=== PATIENT | male | born 1955 | race Caucasian/White ===

== ENCOUNTER 2016-08-21 13:53 | Inpatient (IN) | payer OTHER ==
[2016-08-21 14:38] VITALS: BMI 34.4
--- NOTE | 2016-08-21 15:41 | HP ---
CIWA Score - CIWA Score Nausea/Vomitin Muscle Tremors: 4-Moderate,w/Arms Extend Anxiety: 4-Mod. Anxious/Guarded Agitation: 4-Moderately Restless Paroxysmal Sweats: 3 Orientation: 2-Disoriented Date<2 days Tacttile Disturbances: 0-None Auditory Disturbances: 0-None Visual Disturbances: 0-None Headache: 0-None Present CIWA-Ar Total Score: 19 Admission ROS BHS - HPI Chief Complaint: Withdrawal sx. Allergies/Adverse Reactions: Allergies Allergy/AdvReac Type Severity Reaction Status Date / Time No Known Allergies Allergy Verified 08/21/16 15:07 History of Present Illness: 60 y/o man with a long hx. of alcoholism is admitted for detox. Pt. has been in previous detox,denies significant sobriety. Exam Limitations: No Limitations - Ebola screening Have you traveled outside of the country in the last 21 days: No Have you had contact with anyone from an Ebola affected area: No Have you been sick,other than usual withdrawal symptoms: No Do you have a fever: No - Review of Systems Constitutional: Diaphoresis EENT: reports: No Symptoms Reported Respiratory: reports: No Symptoms reported Cardiac: reports: No Symptoms Reported GI: reports: Nausea, Abdominal cramping : reports: No Symptoms Reported Musculoskeletal: reports: Back Pain Integumentary: reports: Sweating Neuro: reports: Tremors Endocrine: reports: Increased Hunger, Increased Thirst Hematology: reports: No Symptoms Reported Psychiatric: reports: No Sypmtoms Reported Other Systems: Reviewed and Negative Patient History - Patient Medical History Hx Anemia: No Hx Asthma: No Hx Chronic Obstructive Pulmonary Disease (COPD): No Hx Cancer: No Hx Cardiac Disorders: No Hx Congestive Heart Failure: No Hx Hypertension: No Hx Hypercholesterolemia: No Hx Pacemaker: No HX Cerebrovascular Accident: No Hx Seizures: No Hx Dementia: No Hx Diabetes: Yes Hx Gastrointestinal Disorders: No Hx Liver Disease: Yes (hep c) Hx Genitourinary Disorders: No Hx Sexually Transmitted Disorders: No Hx Renal Disease (ESRD): No Hx Thyroid Disease: No Hx Human Immunodeficiency Virus (HIV): No Hx Hepatitis C: Yes (needs treatment) Hx Depression: Yes Hx Suicide Attempt: No Hx Bipolar Disorder: No (schizo-affective) Hx Schizophrenia: No - Patient Surgical History Past Surgical History: No Hx Neurologic Surgery: No Hx Cataract Extraction: No Hx Cardiac Surgery: No Hx Lung Surgery: No Hx Breast Surgery: No Hx Breast Biopsy: No Hx Abdominal Surgery: No Hx Appendectomy: No Hx Cholecystectomy: No Hx Genitourinary Surgery: No Hx Section: No Hx Orthopedic Surgery: No Anesthesia Reaction: No - PPD History Previous Implant?: Yes Documented Results: Negative w/o proof PPD to be Administered?: Yes - Smoking Cessation Smoking history: Current every day smoker Have you smoked in the past 12 months: Yes Aproximately how many cigarettes per day: 5 Hx Chewing Tobacco Use: No Initiated information on smoking cessation: Yes 'Breaking Loose' booklet given: 08/21/16 - Substance & Tx. History Hx Alcohol Use: Yes Hx Substance Use: Yes Substance Use Type: Alcohol, Cocaine, Heroin Hx Substance Use Treatment: Yes (detox,OTP) - Substances Abused Alcohol Route: Oral Frequency: Daily Amount used: liquor- 1 pint, beer- 1 six pack Age of first use: 15 Date of Last Use: 08/20/16 Heroin Route: Inhalation Frequency: Daily Amount used: 2 bags Age of first use: 16 Date of Last Use: 08/20/16 Cocaine Route: Inhalation Frequency: Daily Amount used: $40.00 Age of first use: 15 Date of Last Use: 08/20/16 Family Disease History - Family Disease History Family Disease History: Heart Disease: Father (HTN), Mother (HTN) Admission Physical Exam [facility] - Vital Signs Vital Signs: Vital Signs - 24 hr 08/21/16 14:37 Temperature 96.7 F L Pulse Rate 79 Respiratory 18 Rate Blood Pressure 112/67 - Physical General Appearance: Yes: Tremorous, Sweating, Anxious HEENTM: Yes: Within Normal Limits Respiratory: Yes: Chest Non-Tender, Lungs Clear, Normal Breath Sounds Neck: Yes: Supple Breast: Yes: Breast Exam Deferred Cardiology: Yes: Regular Rhythm, Regular Rate, S1, S2 Abdominal: Yes: Normal Bowel Sounds, Non Tender, Soft Genitourinary: Yes: Within Normal Limits Back: Yes: Within Normal Limits Musculoskeletal: Yes: Within Normal Limits Extremities: Yes: Tremors Neurological: Yes: Fully Oriented, Alert Integumentary: Yes: Diaphoresis Lymphatic: Yes: Within Normal Limits - Diagnostic (1) Alcohol dependence with uncomplicated withdrawal Current Visit: Yes Status: Acute (2) Type II diabetes mellitus Current Visit: Yes Status: Acute Qualifiers: Diabetes mellitus complication status: without complication Diabetes mellitus termite technician insulin use: without snf use Qualified Code(s): E11.9 - Type 2 diabetes mellitus without complications (3) Opioid dependence on agonist therapy Current Visit: Yes Status: Acute (4) Obesity Current Visit: Yes Status: Acute Qualifiers: Obesity type: due to excess calories Obesity severity: non-morbid Qualified Code(s): E66.09 - Other obesity due to excess calories Cleared for Admission BHS - Detox or Rehab [facility] Level of Care: Medically Managed Detox Regimen/Protocol: Librium S Breath Alcohol Content Breath Alcohol Content: 0 Urine Drug Screen - Results Drug Screen Negative: No Urine Drug Screen Results: PATT-Cocaine, OPI-Opiates, MTD-Methadone, TCA- Tricyclic Antidepress
[2016-08-21] MEDS ORDERED: P-EPHED 60MG/TRIPROLIDI 2.5MG TABLET PO PRN (15:48)
[2016-08-21] MEDS ORDERED: guaiFENesin/D-METHORPHAN HB 10 ML UNIT-DOSE CUPS PO PRN (15:48)
[2016-08-21] MEDS ORDERED: chlordiazePOXIDE HCL 25 MG CAPSULE PO ONE (15:48)
[2016-08-21] MEDS ORDERED: MAGNESIUM HYDROX 2400MG/30ML ORAL SUSPENSION 30 ML CUP PO PRN (15:48)
[2016-08-21] MEDS ORDERED: MAGNESIUM CITRATE 300 ML BOTTLE PO PRN (15:48)
[2016-08-21] MEDS ORDERED: ACETAMINOPHEN 325 MG TABLET (FP) PO PRN (15:48)
[2016-08-21] MEDS ORDERED: IBUPROFEN 400 MG TABLET (FP) PO PRN (15:48)
[2016-08-21] MEDS ORDERED: MAG HYDROX/AL HYDROX/SIMETH 30 ML UNIT-DOSE CUP PO PRN (15:48)
[2016-08-21] MEDS ORDERED: hydrOXYzine PAMOATE 50 MG CAPSULE (FP) PO PRN (15:48)
[2016-08-21] MEDS ORDERED: LOPERAMIDE HCL 2 MG CAPSULE PO PRN (15:48)
[2016-08-21] MEDS ORDERED: MENTHOL/PHENOL 1 EACH UD MM PRN (15:48)
[2016-08-21] MEDS ORDERED: chlordiazePOXIDE HCL 25 MG CAPSULE PO PRN (15:48)
[2016-08-21] MEDS: metFORMIN HCL 500 MG TABLET (FP) PO SCH (18:05)
[2016-08-21] MEDS: chlordiazePOXIDE HCL 25 MG CAPSULE PO SCH ×2 (18:06→22:12)
[2016-08-21] MEDS: INSULIN (NOVOLOG) ASPART 100 UNITS/ML 10ML VIAL SQ SCH (18:07)
[2016-08-21] MEDS: NICOTINE 14 MG/24 HOURS TOPICAL PATCH TD SCH (18:07)
[2016-08-21] MEDS: THIAMINE HCL 100 MG TABLET (FP) PO SCH (22:12)
[2016-08-21] MEDS: diphenhydrAMINE HCL 50 MG CAPSULE PO PRN (22:13)
[2016-08-21] MEDS: NICOTINE POLACRILEX 2 MG GUM BC PRN (22:41)
[2016-08-22] MEDS: chlordiazePOXIDE HCL 25 MG CAPSULE PO SCH ×4 (06:10→22:08)
[2016-08-22] MEDS: METHADONE HCL 40 MG DISPERSABLE TABLET PO SCH (06:10)
[2016-08-22] MEDS: metFORMIN HCL 500 MG TABLET (FP) PO SCH ×2 (07:40→17:09)
[2016-08-22] MEDS: INSULIN (NOVOLOG) ASPART 100 UNITS/ML 10ML VIAL SQ SCH ×2 (07:41→17:18)
[2016-08-22] MEDS: PRENATAL VITAMINS W/ FOLIC ACID TABLET (FP) PO SCH (10:12)
[2016-08-22] MEDS: NICOTINE 14 MG/24 HOURS TOPICAL PATCH TD SCH (10:14)
[2016-08-22] MEDS: NICOTINE POLACRILEX 2 MG GUM BC PRN (10:15)
[2016-08-22 10:48] LABS: MCHC 33.7 g/dl (32.0-35.9); MEAN PLT VOLUME 9.5 fl (7.5-11.1); PLATELET COUNT 148 K/MM3 (134-434); RDW 14.3 % (11.9-15.9); WHITE BLOOD COUNT 6.5 K/mm3 (4.0-10.0)
[2016-08-22 10:56] LABS: URINE APPEARANCE CLEAR; URINE BILIRUBIN NEGATIVE (NEGATIVE); URINE BLOOD NEGATIVE (NEGATIVE); URINE COLOR LTYELLOW; URINE GLUCOSE (UA) NEGATIVE (NEGATIVE); URINE KETONE NEGATIVE (NEGATIVE); URINE LEUK ESTERASE NEGATIVE (NEGATIVE); URINE NITRITE NEGATIVE (NEGATIVE); URINE PROTEIN NEGATIVE (NEGATIVE); URINE UROBILINOGEN NEGATIVE E.U./dl (0.2-1.0)
[2016-08-22 11:05] LABS: ALBUMIN 3.7 g/dl (3.4-5.0); ANION GAP 6 (8-16); CALCIUM 9.1 mg/dL (8.5-10.1); CO2 36 mmol/L (21-32); GLUCOSE,RANDOM 138 mg/dL (74-106); SGPT/ALT 41 U/L (12-78)
[2016-08-22 11:10] LABS: ALK PHOS 121 U/L (45-117); BILIRUBIN,TOTAL 0.6 mg/dL (0.2-1.0); SGOT/AST 25 U/L (15-37)
--- NOTE | 2016-08-22 16:05 | PN ---
S CIWA - CIWA Score Nausea/Vomitin Muscle Tremors: 4-Moderate,w/Arms Extend Anxiety: 4-Mod. Anxious/Guarded Agitation: 4-Moderately Restless Paroxysmal Sweats: No Perspiration Orientation: 0-Oriented Tacttile Disturbances: 1-Very Mild Itch/Numbness Auditory Disturbances: 0-None Visual Disturbances: 0-None Headache: 2-Mild CIWA-Ar Total Score: 18 BHS COWS - Scale Resting Pulse: 0= [place] 80 or Below Sweatin= Chills/Flushing Restless Observation: 3= Extraneous Movement Pupil Size: 0= Normal to Room Light Bone or Joint Aches: 2= Severe Diffuse Aches Runny Nose/ Eye Tearin= Runny Nose/Eyes GI Upset > 30mins: 2= Nausea/Diarrhea Tremor Observation of Outstretched Hands: 2= Slight Tremor Visible Yawning Observation: 0= None Anxiety or Irritability: 2=Irritable/Anxious Goose Flesh Skin: 0=Smooth Skin COWS Score: 14 S Progress Note (SOAP) Subjective: Restless, anxious, interrupted sleep, sweating, tremor Objective: 08/22/16 16:03 Last Vital Signs Temp Pulse Resp BP Pulse Ox 98.2 F 63 20 123/71 08/22/16 14:03 08/22/16 14:03 08/22/16 14:03 08/22/16 14:03 Laboratory Tests 08/21/16 08/22/16 08/22/16 15:25 06:09 07:30 WBC 6.5 RBC 4.36 Hgb 12.6 Hct 37.5 MCV 86.0 MCHC 33.7 RDW 14.3 Plt Count 148 MPV 9.5 Sodium Potassium Chloride Carbon Dioxide Anion Gap BUN Creatinine Creat Clearance w eGFR POC Glucometer 96 129 Random Glucose Calcium Total Bilirubin AST ALT Alkaline Phosphatase Total Protein Albumin Urine Color Urine Appearance Urine pH Ur Specific [place] Urine Protein Urine Glucose (UA) Urine Ketones Urine Blood Urine Nitrite Urine Bilirubin Urine Urobilinogen Ur Leukocyte Esterase RPR Titer 08/22/16 08/22/16 08/22/16 07:30 07:30 07:30 WBC RBC Hgb Hct MCV MCHC RDW Plt Count MPV Sodium 141 Potassium 4.8 Chloride 99 Carbon Dioxide 36 H Anion Gap 6 L BUN 20 H Creatinine 1.0 Creat Clearance w eGFR > 60 POC Glucometer Random Glucose 138 H Calcium 9.1 Total Bilirubin 0.6 AST 25 ALT 41 Alkaline Phosphatase 121 H Total Protein 7.0 Albumin 3.7 Urine Color Ltyellow Urine Appearance Clear Urine pH 5.0 Ur Specific [place] 1.013 Urine Protein Negative Urine Glucose (UA) Negative Urine Ketones Negative Urine Blood Negative Urine Nitrite Negative Urine Bilirubin Negative Urine Urobilinogen Negative Ur Leukocyte Esterase Negative RPR Titer Nonreactive Labs noted Assessment: 08/22/16 16:04 Withdrawal symptoms Plan: Continue detox Ambien 10 mg PO x 1 dose tonight until seen by psychiatrist tomorrow (patient stated he takes seroquel 400mg for sleep)
[2016-08-22] MEDS ORDERED: INSULIN (NOVOLOG) ASPART 100 UNITS/ML 10ML VIAL ONE (17:13)
[2016-08-22] MEDS ORDERED: ZOLPIDEM TARTRATE 5 MG TABLET PO ONE (22:00)
[2016-08-22] MEDS: THIAMINE HCL 100 MG TABLET (FP) PO SCH (22:08)
--- NOTE | 2016-08-22 22:31 | EKG ---
Test Reason : Blood Pressure : / mmHG Vent. Rate : 060 BPM Atrial Rate : 060 BPM P-R Int : 172 ms QRS Dur : 094 ms QT Int : 448 ms P-R-T Axes : 006 019 042 degrees QTc Int : 448 ms NORMAL SINUS RHYTHM NORMAL ECG NO PREVIOUS ECGS AVAILABLE Confirmed by MEE PANTOJA MD ([id number]) on 08/22/2016 10:30:42 PM Referred By: Confirmed By:MEE PANTOJA MD
[2016-08-23] MEDS: chlordiazePOXIDE HCL 25 MG CAPSULE PO SCH ×2 (05:17→11:05)
[2016-08-23] MEDS: METHADONE HCL 40 MG DISPERSABLE TABLET PO SCH (05:18)
[2016-08-23] MEDS: INSULIN (NOVOLOG) ASPART 100 UNITS/ML 10ML VIAL SQ SCH ×2 (07:11→17:39)
[2016-08-23] MEDS: metFORMIN HCL 500 MG TABLET (FP) PO SCH ×2 (07:12→17:38)
--- NOTE | 2016-08-23 10:33 | PN ---
[facility] CIWA - CIWA Score Nausea/Vomitin Muscle Tremors: 2 Anxiety: 3 Agitation: 2 Paroxysmal Sweats: 3 Orientation: 0-Oriented Tacttile Disturbances: 1-Very Mild Itch/Numbness Auditory Disturbances: 0-None Visual Disturbances: 0-None Headache: 0-None Present CIWA-Ar Total Score: 14 [facility] Progress Note (SOAP) Subjective: interrupted sleep , sweats, Objective: 08/23/16 10:33 Vital Signs Temperature 99.1 F 08/23/16 10:00 Pulse Rate 114 H 08/23/16 10:00 Respiratory Rate 18 08/23/16 10:00 Blood Pressure 136/85 08/23/16 10:00 O2 Sat by Pulse Oximetry (%) Laboratory Tests 08/21/16 08/22/16 08/22/16 15:25 06:09 07:30 WBC 6.5 RBC 4.36 Hgb 12.6 Hct 37.5 MCV 86.0 MCHC 33.7 RDW 14.3 Plt Count 148 MPV 9.5 Sodium Potassium Chloride Carbon Dioxide Anion Gap BUN Creatinine Creat Clearance w eGFR POC Glucometer 96 129 Random Glucose Calcium Total Bilirubin AST ALT Alkaline Phosphatase Total Protein Albumin Urine Color Urine Appearance Urine pH Ur Specific [place] Urine Protein Urine Glucose (UA) Urine Ketones Urine Blood Urine Nitrite Urine Bilirubin Urine Urobilinogen Ur Leukocyte Esterase RPR Titer 08/22/16 08/22/16 08/22/16 07:30 07:30 07:30 WBC RBC Hgb Hct MCV MCHC RDW Plt Count MPV Sodium 141 Potassium 4.8 Chloride 99 Carbon Dioxide 36 H Anion Gap 6 L BUN 20 H Creatinine 1.0 Creat Clearance w eGFR > 60 POC Glucometer Random Glucose 138 H Calcium 9.1 Total Bilirubin 0.6 AST 25 ALT 41 Alkaline Phosphatase 121 H Total Protein 7.0 Albumin 3.7 Urine Color Ltyellow Urine Appearance Clear Urine pH 5.0 Ur Specific [place] 1.013 Urine Protein Negative Urine Glucose (UA) Negative Urine Ketones Negative Urine Blood Negative Urine Nitrite Negative Urine Bilirubin Negative Urine Urobilinogen Negative Ur Leukocyte Esterase Negative RPR Titer Nonreactive 08/22/16 08/23/16 16:41 06:23 WBC RBC Hgb Hct MCV MCHC RDW Plt Count MPV Sodium Potassium Chloride Carbon Dioxide Anion Gap BUN Creatinine Creat Clearance w eGFR POC Glucometer 177 146 Random Glucose Calcium Total Bilirubin AST ALT Alkaline Phosphatase Total Protein Albumin Urine Color Urine Appearance Urine pH Ur Specific [place] Urine Protein Urine Glucose (UA) Urine Ketones Urine Blood Urine Nitrite Urine Bilirubin Urine Urobilinogen Ur Leukocyte Esterase RPR Titer 08/23/16 11:27 pt aox3 in nad ambulating Assessment: 08/23/16 10:33 withdrawal sx;s 08/23/16 11:28 Plan: cont. detox increase fluids imodium prn
[2016-08-23] MEDS: NICOTINE 14 MG/24 HOURS TOPICAL PATCH TD SCH (11:05)
[2016-08-23] MEDS: NICOTINE POLACRILEX 2 MG GUM BC PRN (11:05)
[2016-08-23] MEDS: PRENATAL VITAMINS W/ FOLIC ACID TABLET (FP) PO SCH (11:05)
--- NOTE | 2016-08-23 15:02 | CONSULT ---
[facility] Psychiatric Consult - Data Date of interview: 08/23/16 Admission source: [facility] Identifying data: First admission to [facility] for this 60 y/o male seeking detox treatment for heroin,alcohol and cocaine dependence.Patient is single without children,homeless,unemployed and supported on [facility] benefits. Substance Abuse History: - Smoking Cessation. Smoking history: Current every day smoker. Have you smoked in the past 12 months: Yes. Aproximately how many cigarettes per day: 5. Hx Chewing Tobacco Use: No. Initiated information on smoking cessation: Yes. 'Breaking Loose' booklet given: 08/21/16. - Substance & Tx. History. Hx Alcohol Use: Yes. Hx Substance Use: Yes. Substance Use Type : Alcohol, Cocaine, Heroin. Hx Substance Use Treatment: Yes (detox,OTP). - Substances Abused. Alcohol. Route: Oral. Frequency: Daily. Amount used: liquor- 1 pint, beer- 1 six pack. Age of first use: 15. Date of Last Use: . Heroin. Route: Inhalation. Frequency: Daily. Amount used: 2 bags. Age of first use: 16. Date of Last Use: 08/20/16. Cocaine. Route: Inhalation. Frequency: Daily. Amount used: $40.00. Age of first use: 15. Date of Last Use: 08/20/16. Confirmed by patient. Medical History: Obesity,diabetes mellitus,hepatitis C and hypertension. Psychiatric History: Patient reports that he was hospitalized at [facility] last month.Diagnosed with Schizoaffective Disorder.Mr Espinoza gets his outpatient psychiatric services at the [facility] in [facility].Prescribed seroquel 400 mg/hs + zoloft 100 mg/day (self-report).He states that he last took these medications three days ago.Patient admits to an antecedent of suicide attempt via overdose with " pills " seven years ago. Physical/Sexual Abuse/Trauma History: Patient denies. Additional Comment: Urine Drug Screen Results: PATT-Cocaine, OPI-Opiates, MTD- Methadone, TCA-Tricyclic Antidepressant.Noted. Mental Status Exam - Mental Status Exam Alert and Oriented to: Time, Place, Person Cognitive Function: Good Patient Appearance: Well Groomed Mood: Nervous, Withdrawn, Anxious Affect: Mood Congruent, Blunted Patient Behavior: Fatigued, Appropriate, Cooperative Speech Pattern: Clear Voice Loudness: Normal Thought Process: Goal Oriented Thought Disorder: Not Present Hallucinations: Denies Suicidal Ideation: Denies Homicidal Ideation: Denies Insight/Judgement: Poor Sleep: Poorly, Difficulty falling asleep Appetite: Good Muscle strength/Tone: Normal Gait/Station: Normal Psychiatric Findings - Problem List ([place] 1, 2,3) (1) Alcohol dependence with uncomplicated withdrawal Current Visit: Yes Status: Acute (2) Cocaine dependence Current Visit: Yes Status: Acute (3) Opioid dependence on agonist therapy Current Visit: Yes Status: Acute (4) Nicotine dependence Current Visit: Yes Status: Acute (5) Schizoaffective disorder Current Visit: Yes Status: Chronic (6) Obesity Current Visit: Yes Status: Chronic Qualifiers: Obesity type: due to excess calories Obesity severity: non-morbid Qualified Code(s): E66.09 - Other obesity due to excess calories (7) Type II diabetes mellitus Current Visit: Yes Status: Chronic Qualifiers: Diabetes mellitus complication status: without complication Diabetes mellitus intermediate card tender insulin use: without alf use Qualified Code(s): E11.9 - Type 2 diabetes mellitus without complications (8) Insomnia Current Visit: Yes Status: Chronic - Initial Treatment Plan Initial Treatment Plan: Psychoeducation.Detoxification.Medications : seroquel 250 mg po hs (reduced but titration will follow if no oversedation) + zoloft 100 mg po daily.Doses verified through review of Pharmacy Claims :scripts for seroquel 400 mg tab # 14/14 days + zoloft 100 mg tab # 14/14 days issued on 08/16 @ [facility].Side effects/benefits discussed with patient.He consents (verbally) to follow this plan of care.Observation.
[2016-08-23] MEDS ORDERED: INSULIN (NOVOLOG) ASPART 100 UNITS/ML 10ML VIAL ONE (17:33)
[2016-08-23] MEDS: chlordiazePOXIDE 5 MG CAPSULE PO SCH ×2 (17:38→22:47)
[2016-08-23] MEDS ORDERED: QUEtiapine FUMARATE 50 MG TABLET ONE (21:35)
[2016-08-23] MEDS ORDERED: QUEtiapine FUMARATE 200 MG TABLET ONE (21:35)
[2016-08-23] MEDS ORDERED: QUEtiapine FUMARATE 200 MG TABLET PO SCH ×2 (22:00)
[2016-08-23] MEDS: THIAMINE HCL 100 MG TABLET (FP) PO SCH (22:47)
[2016-08-23] MEDS: QUETIAPINE FUMARATE 200 MG, QUETIAPINE FUMARATE 50 MG PO SCH (22:47)
[2016-08-24] MEDS: chlordiazePOXIDE 5 MG CAPSULE PO SCH ×2 (05:35→11:03)
[2016-08-24] MEDS: METHADONE HCL 40 MG DISPERSABLE TABLET PO SCH (05:35)
[2016-08-24] MEDS: INSULIN (NOVOLOG) ASPART 100 UNITS/ML 10ML VIAL SQ SCH ×2 (06:16→17:35)
[2016-08-24] MEDS: metFORMIN HCL 500 MG TABLET (FP) PO SCH ×2 (07:08→17:44)
[2016-08-24] MEDS ORDERED: SERTRALINE HCL 50 MG TABLET (FP) PO SCH (10:00)
--- NOTE | 2016-08-24 10:23 | PN ---
BHS Progress Note (SOAP) Subjective: sweats mild shakes low back pain Objective: 08/24/16 10:21 Vital Signs Temperature 97.6 F 08/24/16 10:01 Pulse Rate 67 08/24/16 10:01 Respiratory Rate 18 08/24/16 10:01 Blood Pressure 143/73 08/24/16 10:01 O2 Sat by Pulse Oximetry (%) awake/alert ambulating no acute distress Assessment: 08/24/16 10:21 withdrawal sx Plan: continue detox increase fluids lidocaine patch tylenol/motrin prn d/c in am
[2016-08-24] MEDS: PRENATAL VITAMINS W/ FOLIC ACID TABLET (FP) PO SCH (11:03)
[2016-08-24] MEDS: NICOTINE 14 MG/24 HOURS TOPICAL PATCH TD SCH (11:04)
[2016-08-24] MEDS: chlordiazePOXIDE HCL 10 MG CAPSULE PO SCH ×2 (17:45→22:03)
[2016-08-24] MEDS ORDERED: QUEtiapine FUMARATE 50 MG TABLET ONE (20:43)
[2016-08-24] MEDS ORDERED: QUEtiapine FUMARATE 200 MG TABLET ONE (20:44)
[2016-08-24] MEDS: QUETIAPINE FUMARATE 200 MG, QUETIAPINE FUMARATE 50 MG PO SCH (22:03)
[2016-08-24] MEDS: THIAMINE HCL 100 MG TABLET (FP) PO SCH (22:03)
[2016-08-24] MEDS: diphenhydrAMINE HCL 50 MG CAPSULE PO PRN (22:03)
[2016-08-25] MEDS: METHADONE HCL 40 MG DISPERSABLE TABLET PO SCH (06:21)
[2016-08-25] MEDS: chlordiazePOXIDE HCL 10 MG CAPSULE PO SCH (06:21)
[2016-08-25] MEDS: metFORMIN HCL 500 MG TABLET (FP) PO SCH (06:27)
[2016-08-25] MEDS: INSULIN (NOVOLOG) ASPART 100 UNITS/ML 10ML VIAL SQ SCH (06:28)
[2016-08-25 06:49] VITALS: BP 126/83; PULSE 75; TEMP 97.6
--- NOTE | 2016-08-25 09:07 | DS ---
[facility] Detox Discharge Summary Admission Date: 08/21/16 Discharge Date: 08/25/16 - History Present History: Alcohol Dependence, Cocaine Dependence - Physical Exam Results Vital Signs: Vital Signs Temperature 97.6 F 08/25/16 06:48 Pulse Rate 75 08/25/16 06:48 Respiratory Rate 18 08/25/16 06:48 Blood Pressure 126/83 08/25/16 06:48 O2 Sat by Pulse Oximetry (%) - Treatment Hospital Course: Detox Protocol Followed, Detoxed Safely, Responded well - Medication Discharge Medications: Ambulatory Orders Metformin HCl [Glucophage -] 500 mg PO BID 08/21/16 Quetiapine Fumarate [Seroquel -] 400 mg PO HS 08/21/16 Sertraline HCl [Zoloft -] 50 mg PO DAILY 08/21/16 - Diagnosis (1) Alcohol dependence with uncomplicated withdrawal Current Visit: Yes Status: Chronic (2) Cocaine dependence Current Visit: Yes Status: Chronic Qualifiers: Complication of substance-induced condition: uncomplicated (3) Nicotine dependence Current Visit: Yes Status: Chronic Qualifiers: Nicotine product type: cigarettes Substance use status: uncomplicated Qualified Code(s): F17.210 - Nicotine dependence, cigarettes, uncomplicated (4) Obesity Current Visit: Yes Status: Chronic Qualifiers: Obesity type: due to excess calories Obesity severity: non-morbid Qualified Code(s): E66.09 - Other obesity due to excess calories (5) Schizoaffective disorder Current Visit: Yes Status: Chronic (6) Type II diabetes mellitus Current Visit: Yes Status: Chronic Qualifiers: Diabetes mellitus complication status: without complication Diabetes mellitus tank terminal gauger insulin use: without tank terminal gauger use Qualified Code(s): E11.9 - Type 2 diabetes mellitus without complications - AMA Did Patient Leave Against Medical Advice: No
== END 2016-08-25 09:55 | disposition home or self-care (01) | DRG 773 ==
LOC: YASAS 13:53 → Y6N 15:22
PROVIDERS: ADMIT Internal Medicine; ATTEND Internal Medicine Addiction Medicine
PROC: HZ2ZZZZ Detoxification Services for Substance Abuse Treatment (ICD-10-PCS; principal; 2016-08-21)
DX: F10.230 Alcohol dependence with withdrawal, uncomplicated (principal); F11.20 Opioid dependence, uncomplicated; F14.20 Cocaine dependence, uncomplicated; F17.210 Nicotine dependence, cigarettes, uncomplicated; F25.9 Schizoaffective disorder, unspecified; E11.9 Type 2 diabetes mellitus without complications; E66.09 Other obesity due to excess calories; Z68.34 Body mass index [BMI] 34.0-34.9, adult; B18.2 Chronic viral hepatitis C
CPT/HCPCS: 36415; 80053; 81003; 85027; 86593; 93005; 93010